=== PATIENT | male | born 1970 | race Caucasian/White ===

== ENCOUNTER → 2016-08-31 | Outpatient (CLI) | payer BC ==
--- NOTE | 2016-09-01 09:15 | DI ---
Indication: ITS.REASON: M25.512 LT SHOULDER PAIN; R20.2 NUMBNESS PROCEDURE: MRI SHOULDER LEFT W/O CONTRAST: Encounter: Initial Comparison: None Technique: Multiplanar multisequence MR imaging of the left shoulder was performed without contrast. Findings: The long head biceps tendon is intact and located within the bicipital groove. Subscapularis tendon is intact. Deep partial-thickness articular surface tearing of the anterior half of the distal supraspinatus. This involves at least 50% of the tendon depth. The infraspinatus and teres minor tendons are intact. No acute fracture. Bone marrow signal intensity is normal. Small subacromial subdeltoid bursal effusion. No discrete labral tear identified. Muscular bulk and signal intensity is normal. Impression: Severe partial tearing of the supraspinatus. Subacromial subdeltoid bursitis. .
== END ==
LOC: IMA 16:27
PROVIDERS: ATTEND Family Medicine
DX: M75.112 Incomplete rotator cuff tear or rupture of left shoulder, not specified as traumatic (principal); M75.52 Bursitis of left shoulder; R20.2 Paresthesia of skin; M25.512 Pain in left shoulder

== ENCOUNTER → 2016-09-15 | Outpatient (CLI) | payer BC ==
[2016-09-15 14:24] LABS: BASOPHILS % (AUTO) 0.5 % (0-2); EOSINOPHILS # (AUTO) 0.5 T/MM3 (0-0.5); EOSINOPHILS % (AUTO) 6.2 % (0-4); HCT - HEMATOCRIT 42.4 % (41-53); IMMATURE GRANULOCYTE # (AUTO) 0.01 T/MM3 (0.00-0.03); IMMATURE GRANULOCYTE % (AUTO) 0.1 % (0.0-0.5); LYMPHOCYTES # (AUTO) 2.3 T/MM3 (1-4.8); LYMPHOCYTES % (AUTO) 28.9 % (23-45); MEAN CORPUSCULAR HGB 30.5 UUG (26-34); MEAN CORPUSCULAR HGB CONC(MCHC 35.4 GM/DL (31-37); MEAN CORPUSCULAR VOLUME 86.2 UM3 (80-100); MEAN PLATELET VOLUME 10.5 UM3 (9.4-12.4); MONOCYTES # (AUTO) 0.5 T/MM3 (0-0.8); MONOCYTES % (AUTO) 5.8 % (0-9.0); NEUTROPHILS #(AUTO)-ABSOLUTE 4.6 T/MM3 (1.8-7.7); NEUTROPHILS % (AUTO) 58.5 % (33-66); RED BLOOD COUNT 4.92 M/MM3 (4.50-5.90); WBC - WHITE BLOOD COUNT 7.8 T/MM3 (4.5-11.0)
[2016-09-15 14:38] LABS: ANION GAP 14 MEQ/L (5-15); BUN/CREATININE RATIO 14 RATIO (6-26); CALCIUM 9.6 MG/DL (8.4-10.2); CHLORIDE 102 MEQ/L (98-107); CO2 - CARBON DIOXIDE 30 MEQ/L (22-30); CREATININE 0.9 MG/DL (0.8-1.5); GLOMERULAR FILTRATION RATE 92; GLUCOSE 102 MG/DL (75-110); SODIUM 146 MEQ/L (134-144)
== END ==
LOC: LAB 13:57
PROVIDERS: ATTEND Orthopaedic Surgery
DX: Z01.818 Encounter for other preprocedural examination (principal)
CPT/HCPCS: 36415; 80048; 85025; 93005